=== PATIENT | female | born 1980 | race Caucasian/White ===

== ENCOUNTER 2017-12-25 14:16 | Emergency (ER) | END 2017-12-25 18:38 | disposition home or self-care (01) ==

== ENCOUNTER 2018-01-01 10:23 | Day surgery (SDC) | END 2018-01-01 15:20 | disposition home or self-care (01) ==

== ENCOUNTER 2018-01-17 22:31 | Inpatient (IN) | END 2018-01-19 15:45 | disposition home or self-care (01) | DRG 745 ==

== ENCOUNTER 2018-01-26 13:49 | Outpatient (CLI) | END 2018-01-29 14:08 | disposition home or self-care (01) ==